=== PATIENT | female | born 1975 | race Two or more races ===

== ENCOUNTER 2023-11-27 08:09 | Outpatient (CLI) | payer OTHER | END 2023-11-27 08:12 | disposition home or self-care (01) | LOC: SONOGRAMA 08:09 | DX: R31.9 Hematuria, unspecified (principal) ==

== ENCOUNTER 2023-12-01 08:25 | Outpatient (CLI) | payer OTHER ==
[2023-12-01 08:59] LABS: URINE APPEARANCE Clear; URINE BILIRRUBIN Negative (NEGATIVE); URINE COLOR Yellow; URINE GLUCOSE Negative (NEGATIVE); URINE KETONE Negative (NEGATIVE); URINE LEUKOCYTE Negative; URINE NITRATE Negative; URINE PROTEIN Negative (NEGATIVE); URINE UROBILINOGEN 0.2 E.U./dl
[2023-12-01 09:01] LABS: URINE BACTERIA 346.3 uL (0.0-1933); URINE EPITHELIAL CELLS 6.4 uL (0.0-38.8); URINE RBC 47.6 uL (0.0-20.8); URINE WBC 3.5 uL (0.0-23.2)
[2023-12-01 09:09] LABS: URINE BLOOD Trace
[2023-12-01 09:45] LABS: CHOL HDL RATIO 3.5 (0-5.0); CREATININE SERUM 0.79 mg/dL (0.55-1.02); GFR 77.35
== END 2023-12-01 08:34 | disposition home or self-care (01) ==
LOC: LAB 08:25
DX: E78.2 Mixed hyperlipidemia (principal); R73.01 Impaired fasting glucose

== ENCOUNTER 2023-12-04 08:41 | Outpatient (CLI) | payer OTHER | END 2023-12-04 08:58 | disposition home or self-care (01) | LOC: MAMO-SONO 08:41 | PROVIDERS: ATTEND Surgery | DX: N60.11 Diffuse cystic mastopathy of right breast (principal); N60.12 Diffuse cystic mastopathy of left breast ==

== ENCOUNTER → 2024-04-14 08:22 | Outpatient (CLI) | payer OTHER ==
[2024-04-14 09:01] LABS: URINE APPEARANCE Clear; URINE BILIRRUBIN Negative (NEGATIVE); URINE BLOOD Trace; URINE COLOR Yellow; URINE GLUCOSE Negative (NEGATIVE); URINE KETONE Negative (NEGATIVE); URINE LEUKOCYTE Negative; URINE NITRATE Negative; URINE PROTEIN Negative (NEGATIVE); URINE UROBILINOGEN 0.2 E.U./dl
[2024-04-14 09:05] LABS: URINE BACTERIA 179.8 uL (0.0-1933); URINE EPITHELIAL CELLS 5.9 uL (0.0-38.8); URINE RBC 12.2 uL (0.0-20.8); URINE WBC 2.6 uL (0.0-23.2)
[2024-04-14 09:52] LABS: CALCIUM 9.3 mg/dL (8.5-10.1); CREATININE SERUM 0.64 mg/dL (0.55-1.02); GFR 98.22; POTASSIUM 4.34 mEq/L (3.5-5.1)
== END | disposition home or self-care (01) ==
LOC: LAB 08:22
PROVIDERS: ATTEND Urology
DX: R31.21 Asymptomatic microscopic hematuria (principal)

== ENCOUNTER 2024-04-19 07:25 | Outpatient (CLI) | payer OTHER | END 2024-04-19 07:33 | disposition home or self-care (01) | LOC: TOM 07:25 | PROVIDERS: ATTEND Urology | DX: R31.21 Asymptomatic microscopic hematuria (principal) ==

== ENCOUNTER 2024-11-30 08:17 | Outpatient (CLI) | payer OTHER ==
[2024-11-30 09:05] LABS: BASO % 0.4 % (0.1-1.2); EOS # 0.09 (0.04-0.54); EOS % 1.2 % (0.7-7.0); LYMPH # 2.26 (1.18-3.74); LYMPH % 29.5 % (19.3-53.1); MEAN PLATELET VOLUME 9.80 fl (9.4-12.4); MONO # 0.65 (0.24-0.82); MONO % 8.5 % (4.7-12.5); NEUT # 4.60 (1.56-6.13); NEUT % 60.0 % (34.0-71.1); RED CELL DISTRIBUTION WIDTH 12.6 % (11.6-14.4)
[2024-11-30 09:11] LABS: URINE APPEARANCE Clear; URINE BILIRRUBIN Negative (NEGATIVE); URINE BLOOD Small; URINE COLOR Yellow; URINE GLUCOSE Negative (NEGATIVE); URINE KETONE Negative (NEGATIVE); URINE LEUKOCYTE Negative; URINE NITRATE Negative; URINE PROTEIN Negative (NEGATIVE); URINE UROBILINOGEN 0.2 E.U./dl
[2024-11-30 09:16] LABS: URINE BACTERIA 328.8 uL (0.0-1933); URINE EPITHELIAL CELLS 3.2 uL (0.0-38.8); URINE RBC 17.7 uL (0.0-20.8); URINE WBC 2.7 uL (0.0-23.2)
[2024-11-30 09:33] LABS: URINE CAST 0.29 uL (0.0-1.40)
[2024-11-30 10:07] LABS: ALT/SGPT 24 U/L (12-78); AST/SGOT 18 U/L (15-37); BILIRUBIN TOTAL 0.42 mg/dL (0.3-1.2); BUN CREA RATIO 21 (7.0-25.0); CHOL HDL RATIO 3.7 (0-5.0); CREATININE SERUM 0.67 mg/dL (0.55-1.02); GFR 93.16; GLOBULINA 3.2 G/DL (2.4-3.5); GLUCOSE FASTING 95 mg/dL (65-100); HDL 57 mg/dl (40-60); LDL 123 mg/dl (0-130); OSMOLALITY SERUM 282 MOSM/KG (275-295); T4 FREE 1.05 NG/ML (0.76-1.46); TSH 1.010 uIU/mL (0.358-3.74); VLDL 30 (0-39)
== END 2024-11-30 08:22 | disposition home or self-care (01) ==
LOC: LAB 08:17
PROVIDERS: ATTEND Internal Medicine
DX: D24.9 Benign neoplasm of unspecified breast (principal); I10 Essential (primary) hypertension; Z13.9 Encounter for screening, unspecified; J45.909 Unspecified asthma, uncomplicated; E78.00 Pure hypercholesterolemia, unspecified; E78.2 Mixed hyperlipidemia; E11.9 Type 2 diabetes mellitus without complications; E03.9 Hypothyroidism, unspecified

== ENCOUNTER 2024-12-06 08:21 | Outpatient (CLI) | payer OTHER ==
[2024-12-06 10:34] LABS: ob NEGATIVE (NEGATIVE)
== END 2024-12-06 08:23 | disposition home or self-care (01) ==
LOC: LAB 08:21
PROVIDERS: ATTEND Internal Medicine
DX: D24.9 Benign neoplasm of unspecified breast (principal); I10 Essential (primary) hypertension; Z00.00 Encounter for general adult medical examination without abnormal findings; Z13.9 Encounter for screening, unspecified; J45.909 Unspecified asthma, uncomplicated

== ENCOUNTER 2025-01-02 08:32 | Outpatient (CLI) | payer OTHER | END 2025-01-02 08:35 | disposition home or self-care (01) | LOC: MAMO-SONO 08:32 | PROVIDERS: ATTEND Surgery | DX: N60.11 Diffuse cystic mastopathy of right breast (principal); N60.12 Diffuse cystic mastopathy of left breast ==